=== PATIENT | male | born 1955 | race Two or more races ===

== ENCOUNTER 2017-06-30 09:34 | Day surgery (SDC) | payer BC, OTHER ==
[2017-06-25 08:51] VITALS: BMI 25.0
--- NOTE | 2017-06-30 08:22 | HP ---
[facility] - Chief Complaint Chief Complaint: B/L hand Basal Joint pain, OA History of Present Illness: B/L hand pain, Basal Joint OA History Source: Patient Limitations to Obtaining History: No Limitations - Past Medical History Allergies/Adverse Reactions: Allergies Allergy/AdvReac Type Severity Reaction Status Date / Time No Known Drug Allergies Allergy Verified 06/25/17 08:51 - Current Medications Current Medications: Home Medications Medication Instructions Recorded Diovan 160 mg PO DAILY 06/25/17 Omeprazole 20 mg PO DAILY 06/25/17 [facility] Physical Exam - Physical Examination General Appearance: Well Nourished ENT: Clear Lung: Clear to auscultation Heart: Regular rate & rhythm Breasts: Soft Abdomen: Soft Extremities: No edema [facility] Impression/Plan - Impression/Plan Impression: Left Hand Basal Joint OA Operative Procedure: Left Basal Joint Arthroplasty and ligament reconstruction Date to be Performed: 06/30/17
[2017-06-30] MEDS ORDERED: DEXAMETHASONE SOD PHOSPHATE/PF 10 MG/ML SDV ONE (10:11)
[2017-06-30] MEDS ORDERED: ROPIVACAINE HCL 0.5% 30ML VIAL ONE (10:11)
[2017-06-30] MEDS ORDERED: MIDAZOLAM HCL 2 MG/2 ML SINGLE DOSE VIAL ONE ×2 (10:12)
[2017-06-30] MEDS ORDERED: LIDOCAINE HCL/PF 2% SDV 5ML VIAL ONE (11:43)
[2017-06-30] MEDS ORDERED: SUCCINYLCHOLINE CHLORIDE 200 MG/10 ML VIAL ONE ×3 (11:43)
[2017-06-30] MEDS ORDERED: PROPOFOL 20 ML ONE ×3 (11:43)
[2017-06-30] MEDS ORDERED: LIDOCAINE HCL 2% JELLY (5 ML/TUBE) ONE (11:49)
[2017-06-30] MEDS ORDERED: ceFAZolin SODIUM 1 GM VIAL ONE (11:55)
[2017-06-30] MEDS ORDERED: ceFAZolin SODIUM 1 GM VIAL IVPB ONE (11:55)
[2017-06-30] MEDS ORDERED: hydrALAZINE HCL 20 MG/ML VIAL ONE (13:19)
--- NOTE | 2017-06-30 13:32 | OP ---
Operative Note - Note: Operative Date: 06/30/17 ([facility]) Pre-Operative Diagnosis: left basal joint OA Operation: left basal joint arthroplasty, LRTI Post-Operative Diagnosis: Same as Pre-op Surgeon: Bryan Hughes Community Educator: Vivek Malhotra Anesthesiologist/PRACTICE NURSE: Cornelio Larson Anesthesia: Local, MAC Specimens Removed: trapezium Estimated Blood Loss (mls): 0 (tourniquet) Operative Report Dictated: Yes
--- NOTE | 2017-06-30 14:20 | SPEC ---
DATE OF OPERATION: 06/30/2017 PREOPERATIVE DIAGNOSIS: Left basal joint arthritis. POSTOPERATIVE DIAGNOSIS: Left basal joint arthritis. PROCEDURE: Left basal joint arthroplasty, trapeziectomy and ligament reconstruction and tendon interposition with flexor carpi radialis tendon harvest. SURGEON: Brenda Paulino MD FINGER LIFT OPERATOR: SANDY Wakefield ANESTHESIOLOGIST: Cornelio Larson MD ANESTHESIA: Left interscalene block with MAC anesthesia. DRAINS: None. COMPLICATIONS: None. SPECIMEN: Trapezium bone, left wrist. BLOOD LOSS: None. BLOOD GIVEN: None. FLUID REPLACEMENT: 1000 mL. INDICATIONS: This patient is a 62-year-old male with a preoperative diagnosis of severe left basal joint arthritis. After understanding the potential risks, complications, alternatives, benefits of surgical versus nonsurgical treatment, the patient elected to undergo this procedure. Herein, the patient had a left interscalene block, 1 g of IV Ancef. PROCEDURE: Patient was brought to the operating room. Peripheral IV placed and IV sedation given. One gram of IV Ancef was given. The left upper extremity was prepped and draped in sterile fashion. A 3 loupe magnification was used throughout the entire case. A small lazy "S" incision was marked out over the left basal joint. In addition, 3 small transverse stab incisions were marked out with a marking pen for later harvesting of the FCR tendon. A mix of 20 mL 0.5% Marcaine, 1% lidocaine was injected in and around the surgical incisions. The left upper extremity was then elevated and exsanguinated with an Esmarch bandage and the tourniquet inflated to 250 mmHg. Case was begun by using a No. 15-scalpel blade to make a lazy "S" incision over the left basal joint. Subcutaneous hemostasis was achieved with a bipolar cautery. Crossing neurovascular structures were visualized, mobilized and retracted. The hypertrophic capsule of the left basal joint was incised longitudinally with first a No. 15-scalpel blade. A small periosteal dissection done. The 2-0 silk retracting sutures were placed into both dorsal and volar flap, retracting the hypertrophic capsule, exposing the first carpometacarpal joint. A rongeur was used to remove synovitis and a 0.62 K-wire placed into the trapezium. X-rays were taken to document that indeed this was the correct bone. Next, circumferential dissection was done with a No. 15-scalpel blade. An osteotome was used to remove the trapezium in its entirety. A rongeur was used to remove some small pieces of debris. The trapezium was passed off the field as specimen. Once the trapeziectomy was completed the area was irrigated and washed out and x-rays were taken documenting that the entire trapezium and osteophytes were removed. Next our attention turned to harvesting the flexor carpi radialis tendon. Three small stab incisions were made with a No. 15-scalpel blade. Subcutaneous hemostasis achieved with a bipolar cautery to try to keep the incisions as small as possible. A Littler scissor as well as a [place] elevator were used to free up the FCR tendon from its surrounding tendon sheath. Next turning our attention to the most proximal of these stab wounds, first a No. 15-scalpel blade was utilized to transversely cut the entire FCR tendon. It was then passed through each sequential more distal incision with a mosquito forceps. Then using another mosquito to pass it through the first carpometacarpal joint incision. The proximal stab wounds were irrigated, washed out and closure done with some 4-0 undyed Vicryl in the subdermal layer and final skin reapproximation done with the 4-0 subcuticular Biosyn stitch and Steri-Strips. Next all excessive muscle was removed off the FCR tendon with a No. 15-scalpel blade. It was then cut in half, leaving its distal insertion. I then used a small oval bur to make a hole in the left thumb metacarpal from a dorsal radial position, down to where the volar oblique ligament usually inserts. A 3-0 nylon suture was placed into the distal aspect of the dorsal most FCR tendon half and a suture passer was placed through the base of the metacarpal and grabbed the nylon sutures and passed the FCR tendon through the base of the thumb metacarpal. Next, using a 0.062 K-wire and putting the thumb in the position of abduction and slight extension as well as pulling the longitudinal traction to maintain the trapezial space, I put the 0.062 K-wire across the base of the thumb metacarpal. X-rays were taken documenting excellent maintenance of the trapezial space and position of the hardware as well as the thumb metacarpal. Next, the FCR tendon was wrapped around, was tightened, brought around the base of the thumb metacarpal articular surface and tied to itself using 4-0 undyed Vicryl. The extra FCR tendon was then sutured to the other half of the FCR tendon using 4-0 undyed Vicryl with a slip stitch fashion and I made an anchovy which was placed into the trapezial space. This was sutured with 4-0 undyed Vicryl both to the ligament reconstruction as well as to the first CMC joint capsule. It all came together quite nicely. The area was irrigated and washed out and closure begun. The capsule was closed with 4-0 undyed Vicryl which was further sutured to the anchovy interposition graft. Then the deep dermal layer closed with 4-0 undyed Vicryl, skin reapproximated with a running subcuticular 4-0 Biosyn stitch. The area was then covered with Steri-Strips. The K-wires covered with pin caps. The area was then washed and dried, covered with 4 x 4, fluffs to the fingers, Webril and a 5-inch thumb spica fiberglass splint was applied and wrapped with a Bridget and Coban. The tourniquet was taken down after a total tourniquet time of 78 minutes. There were no complications during the case. There was no blood loss and the patient tolerated the procedure quite well and was brought to the ambulatory recovery room in stable condition. BRENDA PAULINO M.D. [id number]
[2017-06-30] MEDS ORDERED: oxyCODONE HCL 5 MG TABLET PO PRN (14:57)
[2017-06-30] MEDS ORDERED: ACETAMINOPHEN 325 MG TABLET (FP) PO PRN (14:57)
[2017-06-30 16:27] VITALS: TEMP 97.6
[2017-06-30 16:51] VITALS: BP 123/66; PULSE 79
--- NOTE | 2017-07-01 07:45 | OP ---
ADDENDUM DATE OF OPERATION: 06/30/2017 I did a dictation today, June 30, 2017, everything is fine except Dr. Herrera was there. He was the primary surgeon. Bryan Paulino MD is the activities assistant. SANDY Wakefield is the second environmental assistant. Otherwise, everything else is fine. BRYAN PAULINO M.D. [id number]
--- NOTE | 2017-07-02 12:59 | PATH ---
Surgical Pathology Report Patient Name: MEAGAN BURDEN Med. Rec. #: [id number] /Age/Gender: 1955 (Age: 62) / M Account: [id number] Location: [facility] Taken: 06/30/2017 Received: 06/30/2017 Reported: 07/02/2017 Physicians: Bryan Hughes M.D. Specimen(s) Received BONE Clinical History Basal joint Final Diagnosis BONE, LEFT BASAL JOINT, ARTHROPLASTY: BONE AND CARTILAGE WITH MARKED REACTIVE CHANGES. Electronically Signed Deep Tariq M.D. Gross Description Received in formalin labeled "bone," is a 3.5 x 3.0 x 0.8 cm aggregate of kraus-yellow, irregular to fragmented portions of bone. Truck Operator sections are submitted in one cassette, following decalcification. 07/01/2017 [facility]07/01/2017
--- NOTE | 2017-07-14 11:38 | SPEC ---
DATE OF OPERATION: 06/30/2017 PREOPERATIVE DIAGNOSIS: Left basal joint arthritis. POSTOPERATIVE DIAGNOSIS: Left basal joint arthritis. PROCEDURE: Left basal joint arthroplasty and LRTI (ligament reconstruction tendon interposition), harvest of flexor carpi radialis tendon. SURGEON: Swathi Herrera MD COMMISSARY WORKER: Bryan Hughes MD SECOND COMMISSARY WORKER: SANDY Wakefield ANESTHESIOLOGIST: Gil Hernandez MD ANESTHESIA: Left interscalene block. DRAINS: None. COMPLICATIONS: None. SPECIMEN: Trapezium bone, left wrist. BLOOD GIVEN: None. FLUID REPLACEMENT: 1000 mL Plasmalyte. IMPLANTS: Two temporary 0.062 K-wires. INDICATION FOR PROCEDURE: This patient is a 62-year-old, [id number] male with a preoperative diagnosis of severe, painful, left basal joint arthritis. After understanding the potential risks, complications, alternatives, benefits of surgery versus nonsurgical treatment, the patient elected to undergo this procedure. DESCRIPTION OF PROCEDURE: He received a left interscalene block. LMA anesthesia was induced. He was placed onto the operative table in the supine position. The left upper extremity was then prepped and draped in sterile fashion, elevated, exsanguinated with an Esmarch bandage, the tourniquet inflated to 250 mmHg. A curvilinear lazy "S" incision was marked out over the left basal joint and 2 smaller incisions over the FCR tendon towards the elbow, and a No. 15 scalpel blade was utilized to cut down through the skin. Subcutaneous hemostasis achieved with the bipolar cautery. Dissection done down through the superficial fascia, exposing the capsule of the left basal joint. This was incised longitudinally for later repair. The Weitlaner retractors were placed into the wound. I did a periosteal dissection on the base of the thumb metacarpal to expose the bone. The trapezium was exposed. A 0.062 K-wire was placed into the trapezium for C-arm fluoroscopy identification. The C-arm was brought in. I confirmed it was the trapezium. The K-wire was then used as a joystick, and circumferential dissection was done with a No. 15 scalpel blade. A 1/4-inch osteotome and mallet were then used to take the trapezium out in a piecemeal fashion, along with a rongeur. The entire trapezium was removed. The area was copiously irrigated and washed out. I did a visual inspection and checked with my finger to make sure there were no remaining pieces of bone, trapezium, or osteophyte between the 1st and 2nd metacarpal. A moist sponge was placed into the trapezial space. Next, our attention turned to harvesting the FCR tendon, which was done in the standard fashion. Two small incisions were made along the course of the FCR. A Littler scissors was utilized to do a dissection, exposing the FCR tendon, releasing it from its sheath, and doing circumferential dissection with a [place] elevator and the Littler scissors. Mosquito clamps were placed under the FCR with the appropriate tension and identification of the tendon. Next, I used a fresh No. 15 scalpel blade to cut the FCR tendon more proximally. I then delivered it through the middle incision, removed all excess muscle tissue with a No. 15 scalpel blade, and brought it out through the distal incision. The 2 proximal stab wounds were irrigated, washed out, and closed with 4-0 undyed Vicryl in the deep dermal layer and final skin reapproximation was done with a running subcuticular 4-0 Biosyn stitch, which was then covered with Steri-Strips. The FCR tendon was then split using 2 mosquitos, pulling them in opposite directions and cutting the small joining fibers in the middle with the Littler scissors. Next, I used the appropriate-sized FCR tail and I used a 4-0 nylon stitch for mobilization. Next, I used the small oval bur and made a drill hole in the base of the thumb metacarpal in the appropriate direction, aiming toward the volar oblique ligament insertion. The area was copiously irrigated and washed out. I then used the blue shoulder suture passer, put it through the tunnel I drilled in the base of the thumb metacarpal, and fed the nylon suture that I put through the end of the FCR tendon through the suture passer and delivered it through the base of the thumb metacarpal. I then looped it under itself. I put two 0.062 K-wires across the thumb metacarpal to the index metacarpal, maintaining the trapezial space, controlling rotation and to protect the tension that would be placed on the LRTI ligament reconstruction. These K-wires were confirmed to be in excellent position with the C-arm fluoroscopy, cut, bent and green pin caps applied. Next, I put the appropriate tension on the ligament reconstruction and tied it in place to itself using 2-0 Vicryl sutures. I then did 2 sliding 4-0 nylon stitches through the remaining FCR tendons and put it down as an anchovy into the trapezial space, tying it down to each other and to the surrounding soft tissue/joint capsule. I filled the trapezial space quite nicely with the remaining FCR tendon. The area was irrigated and washed out. I then closed the capsule over the anchovy LRTI and closed it with 2-0 Vicryl sutures. Final skin reapproximation was done with 4-0 undyed Vicryl in the deep dermal layer, and the final skin reapproximation was done with a running subcuticular 4-0 Biosyn stitch. The area was then washed and dried, covered with Steri-Strips, Xeroform placed at the base of the K-wire pins. The entire area was covered with sterile 4 x 4 gauze, fluffs between the fingers, Webril. A 5-inch Orthoglass thumb spica splint was applied, wrapped with Bridget and Coban, and the tourniquet was taken down after a total tourniquet time was about 78 minutes. There were no complications during the case. The patient tolerated the procedure quite well and was brought to the ambulatory recovery room in stable condition. Bryan Hughes MD dictating for MD SWATHI Hay M.D. [id number]
== END 2017-06-30 16:30 | disposition home or self-care (01) ==
LOC: JASU-SURG 09:34
PROVIDERS: ATTEND Orthopaedic Surgery
PROC: 0RQT0ZZ Repair Left Carpometacarpal Joint, Open Approach (ICD-10-PCS; principal; 2017-06-30 10:30)
DX: M19.042 Primary osteoarthritis, left hand (principal)
CPT/HCPCS: 88304-TC; 88311-TC; 94760